=== PATIENT | female | born 1995 | race Caucasian/White ===

== ENCOUNTER 2016-09-20 19:06 | Emergency (ER) | payer OTHER ==
--- NOTE | 2016-09-20 19:38 | EDPHY ---
H & P Stated Complaint: RIGHT KNEE PAIN, FACIAL ABRASION Time Seen by Provider: 09/20/16 19:23 - Personal History LMP (Females 10-55): 15-21 Days Ago Current Tetanus/Diphtheria Vaccine: Yes Current Tetanus Diphtheria and Acellular Pertussis (TDAP): Yes - Medical/Surgical History Hx Asthma: No Hx Chronic Respiratory Disease: No Hx Diabetes: No Hx Cardiac Disease: No Hx Renal Disease: No Hx Cirrhosis: No Hx Alcoholism: No Hx HIV/AIDS: No Hx Splenectomy or Spleen Trauma: No Other PMH: PMH: DYSPLASTIC AORTIC VALVE, CUNCUSSION - Social History Smoking Status: Never smoked Constitutional: Initial Vital Signs Temperature (C) 36.6 C 09/20/16 19:12 Heart Rate 77 09/20/16 19:12 Respiratory Rate 18 09/20/16 19:12 Blood Pressure 93/77 L 09/20/16 19:12 O2 Sat (%) 99 09/20/16 19:12 O2 Delivery Mode Room Air Allergies/Adverse Reactions: No Known Allergies Allergy (Unverified 09/20/16 19:15) Home Medications: Medication Instructions Recorded HYDROcodone/APAP [[place] 1 - 2 each PO Q4-6PRN PRN #20 tab 09/20/16 [id number]] Medical Decision Making - Diagnostics Imaging Results: Imaging Impressions Knee X-Ray 09/20/16 19:39 Impression: 1. Right tibial spine avulsion fracture with probable ACL injury. 2. Lipohemarthrosis. Findings and recommendations discussed with emergency department physician, Micheal Hui MD at 2013 hours on September 20, 2016. Final report concurs with initial preliminary interpretation. ED Course/Re-evaluation: CHIEF COMPLAINT: Right knee pain. HISTORY OF PRESENT ILLNESS: The patient is a 21-year-old female who presents with right knee pain. She was in a frisbee game earlier today and felt a pop when she planted her foot and twisted. She has pain with range of motion. She denies ankle or hip pain. She denies numbness, weakness, paresthesias, or other complaints. REVIEW OF SYSTEMS: A 10 point review of systems was performed and is negative with the exception of the elements mentioned in the history of present illness. PHYSICAL EXAM: HR, BP, O2 Sat, RR. Temp noted General Appearance: Alert, well hydrated, appropriate, and non-toxic appearing. Head: Atraumatic without scalp tenderness or obvious injury Eyes: Pupils equal, round, reactive to light and accommodation, EOMI, no trauma , no injection. Ears: Clear bilaterally, no perforation, normal landmarks Nose: Atraumatic, no rhinorrhea, clear. Throat: There is no erythema or exudates, no lesions, normal tonsils, mucus membranes moist. Neck: Supple, 2+ carotid upstroke, nontender, no lymphadenopathy. Respiratory: No retractions, no distress, no wheezes, and no accessory muscle use. Lungs are clear to auscultation bilaterally. Cardiovascular: Regular rate and rhythm, no murmurs, rubs, or gallops. Bilateral carotid, radial, dorsalis pedis, and posterior tibial pulses intact. Good capillary refill all extremities. Gastrointestinal: Abdomen is soft, nontender, non-distended, no masses, no rebound, no guarding, no peritoneal signs. Musculoskeletal: Right knee swelling, tenderness, and pain with range of motion. Neurological: Alert, appropriate, and interactive. The patient has normal DTRs and non-focal cranial nerves, motor, sensory, and cerebellar exam. Skin: No rashes, good turgor, no nodules on palpation. Past medical history: Dysplastic aortic valve, concussion. Past surgical history: Denies. Family history: N/A. Social history: Here with parents. DIAGNOSTICS/PROCEDURES/CRITICAL CARE TIME: Study: Right knee X-ray Indication: Trauma Results: I viewed the images myself on the PACS system. My interpretation: tibial spine avulsion fracture, indicated ACL injury. See Imaging Results section for official report. DIFFERENTIAL DIAGNOSIS: The differential diagnosis for the patient's knee injury included but was not limited to fracture, ligamentous injury, contusion, muscular strain, and meniscus injury. MEDICAL DECISION MAKIN-year-old female presents with knee pain after she felt it pop during a frisbee game. She has no other complaints at this time. Right knee x-ray interpreted by myself and the radiologist shows ACL tear with tibial plateau avulsion fracture. She has pain with range of motion of her knee. Her exam is otherwise negative. After my exam and hearing the ACL news, she became pale and vomited. She then had a vagal episode. She was placed in the Trendelenburg position and given 4mg Zofran ODT and responded well. I offered IV fluids but she declined, stating a fear of needles. She will be slowly raised back to a normal position and then road-tested. She has been placed in a knee immobilizer. She will be given crutches. The family has used fili Ca, successfully in the past and would like a referral to him. They have also been given the telephone number of fili Gonzalez. They are comfortable with this plan. 2128: Reassessed patient. She is feeling much better and is ready to go home. I recommended Bacitracin ointment for her face and answered her questions. She is comfortable with the plan. - Data Points Medications Given: Discontinued Medications Hydrocodone Bitart/Acetaminophen ([place] 5/325mg Prepack#6) 1 btl TAKEHOME EDNOW ONE Stop: 09/20/16 20:35 Last Admin: 09/20/16 21:19 Dose: 1 btl Ibuprofen (Motrin) 600 mg PO EDNOW ONE Stop: 09/20/16 19:40 Last Admin: 09/20/16 19:45 Dose: 600 mg Ondansetron HCl (Zofran Odt) 4 mg PO EDNOW ONE Stop: 09/20/16 20:56 Last Admin: 09/20/16 20:55 Dose: 4 mg Departure - Departure Disposition: Home, Routine, Self-Care Clinical Impression: Avulsion fracture ACL tear Qualifiers: Encounter type: initial encounter Laterality: right Qualified Code(s): S83.511A - Sprain of anterior cruciate ligament of right knee, initial encounter Condition: Good Instructions: Hydrocodone/Acetaminophen (By mouth), Crutch Instructions (ED), ACL Injury (ED), Avulsion Fracture (ED) Additional Instructions: Call fili Ca tomorrow morning to set up a follow up appointment. Tell his office you were a patient in the ED tonight. If you need a different orthopedist you have been given the telephone number of fili Gonzalez. Return for any serious worsening of condition. Referrals: KEELY SALAS [Non Staff Provider ()] - As per Instructions Riccardo Antunez MD [Medical Doctor] - As per Instructions Stand Alone Forms: Work Limited Duty Prescriptions: HYDROcodone/APAP 10/325 [[place] 10/325] 1 - 2 each PO Q4-6PRN PRN #20 tab PRN Reason: Pain, Moderate Report Scribed for: Micheal Hui Report Scribed by: Melvin Calderon Date of Report: 09/20/16 Time of Report: 20:15
[2016-09-20] MEDS ORDERED: IBUPROFEN 600 MG TAB PO ONE (19:39)
[2016-09-20] MEDS ORDERED: HYDROCOD/APAP 5/325 PREPACK#6 BTL TAKEHOME ONE (20:34)
[2016-09-20] MEDS ORDERED: ONDANSETRON DISINTEGRATING 4 MG TAB ONE (20:40)
[2016-09-20 20:55] VITALS: RESP 16
[2016-09-20] MEDS ORDERED: ONDANSETRON DISINTEGRATING 4 MG TAB PO ONE (20:55)
[2016-09-20 21:12] VITALS: BP 107/60; PULSE 77; O2SAT 98
[2016-09-20 21:29] VITALS: TEMP 97.7
== END 2016-09-20 21:31 | disposition home or self-care (01) ==
DX: S82.111A Displaced fracture of right tibial spine, initial encounter for closed fracture (principal); S83.511A Sprain of anterior cruciate ligament of right knee, initial encounter; X58.XXXA Exposure to other specified factors, initial encounter; Y93.74 Activity, frisbee
CPT/HCPCS: L1830